=== PATIENT | male | born 2000 | race Caucasian/White ===

== ENCOUNTER 2022-08-06 03:20 | Emergency (ER) | payer SELFPAY ==
[~2022-08-06] VITALS: Ht 175.3 cm; Wt 109.0 kg
[2022-08-06] MEDS ORDERED: PERTUSS(ACELL),DIPH,TET VAC/PF 0.5 ML SYRINGE IM. ONE (05:00)
[2022-08-06 06:05] VITALS: BP 102/62
== END 2022-08-06 06:07 | disposition home or self-care (01) ==
LOC: EMS 03:21
DX: S61.431A Puncture wound without foreign body of right hand, initial encounter (principal); X58.XXXA Exposure to other specified factors, initial encounter; Y93.89 Activity, other specified; Y92.89 Other specified places as the place of occurrence of the external cause; Y99.8 Other external cause status
CPT/HCPCS: 90471; 90715; 99283